=== PATIENT | male | born 1950 | race Caucasian/White ===

== ENCOUNTER 2019-08-10 15:31 | Inpatient (IN) | payer MEDICARE, BC, OTHER ==
[~2019-08-10] VITALS: Ht 175.3 cm; Wt 139.5 kg
[2019-08-10 15:33] VITALS: BP 129/69
[2019-08-10 16:35] LABS: BASO # 0.1 10*3/uL (0.0-0.1); BASO % 0.6 % (0.0-1.0); EOS # 0.2 10*3/uL (0.0-0.4); EOS % 1.8 % (1.0-4.0); HEMATOCRIT 50.2 % (42.0-52.0); HEMOGLOBIN 16.8 g/dl (14.0-18.0); LYMPH # 0.6 10*3/uL (1.3-4.4); LYMPH % 5.4 % (27.0-41.0); MEAN CORPUSCULAR HGB 31.5 pg (27.0-31.0); MEAN CORPUSCULAR HGB CONC 33.5 g/dl (33.0-37.0); MEAN PLATELET VOLUME 11.5 fl (9.6-12.3); MONO # 0.6 10*3/uL (0.1-1.0); MONO % 5.8 % (3.0-9.0); NEUT # 9.5 10*3/uL (2.3-7.9); NEUT % 85.9 % (47.0-73.0); PLATELET COUNT AUTOMATED 169 10*3/uL (130-400); RED BLOOD COUNT 5.34 10*6/uL (4.50-5.90); RED CELL DISTRI WIDTH 13.4 % (0-14.5)
[2019-08-10 16:50] LABS: BILIRUBIN NEGATIVE (NEGATIVE); CLARITY CLEAR (CLEAR); COLOR YELLOW (YELLOW); GLUCOSE 3+ (NEGATIVE)
[2019-08-10 16:51] LABS: BLOOD 1+ (NEGATIVE); KETONE 2+ (NEGATIVE); LEUKO ESTERASE NEGATIVE (NEGATIVE); NITRITE NEGATIVE (NEGATIVE); SPECIFIC GRAVITY 1.005 (1.005-1.030); UROBILINOGEN 0.2 E.U./dl (0.2-1.0)
[2019-08-10 16:56] LABS: BACTERIA 1+; EPITHELIAL CELLS 0-2; RBC 0-2 rbc/hpf (0-2); WBC 0-2 wbc/hpf (0-5)
[2019-08-10 16:56] LABS: ALBUMIN 3.2 gm/dl (3.1-4.5); ALKALINE PHOSPHATASE 79 U/L (45-117); BUN 15 mg/dl (7-24); CHLORIDE 108 mmol/L (98-107); CREATININE 1.23 mg/dL (0.70-1.30); POTASSIUM 4.7 mmol/L (3.5-5.1); SGOT/AST 12 IU/L (3-35); SGPT/ALT 24 U/L (12-78); SODIUM 141 mmol/L (136-145); TOTAL PROTEIN 6.7 gm/dL (6.4-8.2)
[2019-08-10 18:13] VITALS: BP 127/89
--- NOTE | 2019-08-10 19:10 | NUR ---
NURSE TO NURSE REPORT GIVEN TO THIS RN.ADVISED ATTEMPTS MADE BY MD WELLER AND MD LAFLEUR TO OBTAIN SPINAL FLUID VIA LUMBAR PUNCTURE.ATTEMPTS UNSUCCESSFUL AT THIS TIME.ANESTHESIOLOGY CONTACTED.
--- NOTE | 2019-08-10 19:38 | NUR ---
ANESTHESIOLOGITS,VLAD MARY, IN ROOM TO SPEAK WITH PT AND FAMILY REGARDING LUMBAR PUNCTURE PROCEDURE FOR OBTAINMENT OF SPINAL FLUID.
--- NOTE | 2019-08-10 20:17 | NUR ---
THIS RN AT BEDSIDE WITH ANESTHESIOLOGY, VLAD MARY.LUMBAR PUNCTURE PERFORMED BY TYAR FOR SPINAL FLUID.SPINAL FLUID OBTAINED,LABELED AND TAKEN TO LAB.PT TOLERATED WELL.PT LYING IN SUPINE POSITION PER ANESTHESIA FOR 1 HOUR.PT PROVIDED CAFFEINE DRINK OF DIET COKE PER ANESTHESIOLOGIST.
[2019-08-10 20:41] LABS: CSF RBC < 1000 /uL; CSF WBC 8 /uL
--- NOTE | 2019-08-10 20:41 | NUR ---
INFUSION OF ROCEPHIN INITIATED.
[2019-08-10 20:42] VITALS: BP 130/76
[2019-08-10 20:42] LABS: CSF GLUCOSE 124 mg/dL (40-70); CSF TOTAL PROTEIN 88.5 mg/dL (15-45)
--- NOTE | 2019-08-10 20:53 | NUR ---
PT FAMILY AT BEDSIDE.PT TOLERATING DRINKING DIET COKE.
--- NOTE | 2019-08-10 21:06 | NUR ---
INFUSION OF NS INITIATED.
[2019-08-10 21:17] VITALS: BP 129/78
[2019-08-10 21:29] LABS: CSF LYMPHOCYTES 97 % (40-80); CSF MONOCYTES 3 % (15-45)
[2019-08-10 21:33] LABS: CLARITY CLEAR; COLOR COLORLESS
--- NOTE | 2019-08-10 22:28 | NUR ---
PT RETURNED TO ROOM FROM CT.FLUIDS COMPLETED.
--- NOTE | 2019-08-10 22:33 | NUR ---
ADVISED BY RADIOLOGY PT NEEDS TO HOLD METFORMIN FOR 48HR.
[2019-08-10 23:38] VITALS: BP 128/73
--- NOTE | 2019-08-10 23:39 | NUR ---
PT AND FAMILY UPDATED ON CURRENT PLAN OF CARE.ADVISED MD LAFLEUR WILL BE IN TO REVIEW TEST RESULTS SHORTLY.
[2019-08-11] VITALS (7 sets, daily range): BP systolic 102–140; BP diastolic 59–79
--- NOTE | 2019-08-11 00:24 | NUR ---
DR LAFLEUR AT BEDSIDE.
--- NOTE | 2019-08-11 01:35 | NUR ---
PT FAMILY LEAVE A PASSWORD OF "1965"
--- NOTE | 2019-08-11 01:53 | NUR ---
PT DENIES ANY WOUNDS.
--- NOTE | 2019-08-11 02:04 | NUR ---
A 69, admitted to , under the services of MARIN Garzon DO with a diagnosis of FALL. Chief complaint is FEVER/FALL. Patient arrived via from ER. Monitor applied. Initial assessment completed. Vital signs taken and recorded. MARIN GARZON DO notified of admission to the unit. Orders received. See assessment for past medical history, medications and allergies. Patient orientED to unit. Clothing/patient valuable form completed. EDWARD KAT
--- NOTE | 2019-08-11 02:14 | NUR ---
PT FAMILY CONTACTED AND UPDATE ON PT ADMISSION AND ROOM ASSIGNMENT.
--- NOTE | 2019-08-11 02:29 | NUR ---
PRESENT ON FLOOR, INFORMED THAT PATIENT DOES NOT KNOW HIS MEDS, WILL HAVE TO WAIT FOR TO COME IN. STATED OK.
--- NOTE | 2019-08-11 02:43 | NUR ---
ID ANSWERING SERVICES CALLED IN REGARD TO NEW CONSULT. MESSAGE TO BE SENT TO FELIX MARTINEZ.
--- NOTE | 2019-08-11 04:00 | NUR ---
IV started VANNESA with #20 protective cath after 0 attempts. Site prepped with Chloroprep. Sterile dressing applied. Patient tolerated procedure well. IV infusing at BOLUS EDWARD KAT
[2019-08-11 05:56] LABS: BASO % 0.5 % (0.0-1.0); EOS # 0.1 10*3/uL (0.0-0.4); EOS % 2.4 % (1.0-4.0); HEMATOCRIT 47.3 % (42.0-52.0); HEMOGLOBIN 15.6 g/dl (14.0-18.0); LYMPH # 0.8 10*3/uL (1.3-4.4); LYMPH % 12.7 % (27.0-41.0); MEAN CELL VOLUME 93.7 fl (80.0-94.0); MEAN CORPUSCULAR HGB 30.9 pg (27.0-31.0); MEAN PLATELET VOLUME 11.5 fl (9.6-12.3); MONO # 0.5 10*3/uL (0.1-1.0); MONO % 8.3 % (3.0-9.0); NEUT # 4.5 10*3/uL (2.3-7.9); NEUT % 75.6 % (47.0-73.0); PLATELET COUNT AUTOMATED 136 10*3/uL (130-400); RED BLOOD COUNT 5.05 10*6/uL (4.50-5.90); RED CELL DISTRI WIDTH 13.5 % (0-14.5); WHITE BLOOD COUNT 5.9 10*3/uL (4.8-10.8)
[2019-08-11 06:13] LABS: BUN 12 mg/dl (7-24); CHLORIDE 110 mmol/L (98-107); PHOSPHOROUS 3.1 mg/dL (2.5-4.9); SODIUM 142 mmol/L (136-145)
[2019-08-11 06:19] LABS: POTASSIUM 3.7 mmol/L (3.5-5.1); THYROID STIM HORMONE (HS) 0.724 uIU/ml (0.358-4.75)
[2019-08-11 07:22] LABS: VITAMIN D, 25-HYDROXY 48.7 ng/mL (30-100)
--- NOTE | 2019-08-11 09:36 | NUR ---
CALLED DR LEACH PER PT REQUEST, PT DOES NOT WANT THE LOVENOX SHOT, HE WANTS SOMETHING PO. DR LEACH STATES THAT THERE IS NOTHING PO THAT HE WILL NEED THE IM, BUT TO JUST DOCUMENT IF HE REFUSES.
--- NOTE | 2019-08-11 09:38 | NUR ---
IN PT ROOM AT THIS TIME TO LET HIM KNOW THERE IS NO PO FORM OF LOVENOX, SO HE STATES HE WANTS TO REFUSE THE MEDICATION
--- NOTE | 2019-08-11 09:56 | NUR ---
DR VU ON THE FLOOR AND WANTS TO REACH OUT TO ID FOR THE CONSULT. CALLED THE ANSWERING SERVICE AND SHE STATES THAT DR WASHINGTON IS DISTRIBUTION SUPERINTENDENT AND WAS NOTIFIED OF THE CONSULT, THEY WILL PUT A REPEAT IN NOW. IF I DO NOT HEAR FROM DR WASHINGTON IN THE NEXT HALF HOUR TO CALL BACK AND THEY WILL TRY THE NEXT STEP IF NEEDED
--- NOTE | 2019-08-11 10:39 | NUR ---
DR WASHINGTON NOTIFIED OF NEW CONSULT, STATES SHE WILL BE IN TO SEE THE PATIENT. DR CHAMORRO AND DR VU ON THE FLOOR AND NOTIFIED OF THIS
--- NOTE | 2019-08-11 11:10 | NUR ---
FAMILY MEMBERS IN THE ROOM NOW AND SHE STATES THAT THEY WILL RUN HOME TO GET THE HOME MEDICATION LIST AND BRING IT IN SO I CAN UPDATED RECORDS
[2019-08-11] MEDS ORDERED: LITHIUM CARBON600 MG PO (11:52)
[2019-08-11] MEDS ORDERED: JARDIANCE25 MG PO (11:53)
[2019-08-11] MEDS ORDERED: OSTERA TABLET1 EACH PO (11:53)
[2019-08-11] MEDS ORDERED: GLUCOPHAGE1000 MG PO (11:54)
[2019-08-11] MEDS ORDERED: NEURONTIN300 MG PO (11:54)
[2019-08-11] MEDS ORDERED: DOCUSATE SOD100 MG PO (11:55)
[2019-08-11] MEDS ORDERED: GLIPIZIDE5 MG PO (11:56)
[2019-08-11] MEDS ORDERED: BENZTROPINE MESY2 MG PO (11:56)
[2019-08-11] MEDS ORDERED: TAMSULOSIN HCL0.4 MG PO (11:59)
[2019-08-11] MEDS ORDERED: ABILIFY5 MG PO (11:59)
[2019-08-11] MEDS ORDERED: PROPRANOLOL ER80 MG PO (12:00)
[2019-08-11] MEDS ORDERED: FUROSEMIDE40 MG PO (12:01)
[2019-08-11] MEDS ORDERED: DIVALPROEX SOD500 MG PO (12:02)
[2019-08-11] MEDS ORDERED: MEDI-LYTE TABL1 EACH PO (12:02)
--- NOTE | 2019-08-11 12:15 | NUR ---
DR CHAMORRO NOTIFIED OF UPDATED MED LIST
--- NOTE | 2019-08-11 12:15 | NUR ---
DR CHAMORRO ON THE FLOOR AND NOTIFIED OF UPDATED MEDICATION LIST
--- NOTE | 2019-08-11 12:34 | NUR ---
PT IS CONFUSED AND AGITATED AND WANTS TO KNOW WHEN HE CAN LEAVE. CALLED HIS PER REQUEST AND HE TALKED TO HER ON THE PHONE. I EXPLAINED WHO DR HERNANDEZ WAS AND WHAT THE PLAN WAS WITH HIS CARE, PT STATES THAT HE IS JUST VERY CONFUSED AND NOT SURE IF HE IS COMING OR GOING HERE. PT STATES SHE WILL BE IN TODAY TO BRING IN HIS CHECKS SO THAT HE CAN PAY BILLS. CALL LIGHT WITHIN REACH, WILL CONTINUE TO MONITOR
[2019-08-12] VITALS: BP 130/62
--- NOTE | 2019-08-12 07:31 | NUR ---
Occupational Therapy: Screen and referral received for occupational therapy evaluation. Thank you, Anamaria Carreno OTR/L
[2019-08-12 07:32] VITALS: BP 118/68
--- NOTE | 2019-08-12 07:42 | NUR ---
PHYSICAL THERAPY Screen and PT eval received will follow thank you Ally Nettles PT
--- NOTE | 2019-08-12 08:15 | NUR ---
Occupational therapy orders received and OT evaluation completed in full on floor four. Patient precautions include fall risk, ww use, IV, and catheter. Per OT eval, OT recommends SNF due to patient's functional status and history of falls. Patient and family refusing SNF, and would like to return home to [place] later this week with HH. Patient and family educated on benefits of SNF and continued rehab [place] [address]. Thank you for the referral. Sully Salinas OTR/L
--- NOTE | 2019-08-12 08:27 | NUR ---
PT RESTING IN BED, JUST FINISHED EATING BREAKFAST. PT PLEASANT AND COOPERATIVE. NO COMPLAINTS VOICED AT THIS TIME. JALEEL PEREZ [facility]
--- NOTE | 2019-08-12 09:00 | NUR ---
Licensed Nurse Practitioner in to talk to patient. Patient states lives at home with . There are no steps in the home. Physician: out of state Pharmacy: out of state Home health services: none Patient's level of ADLs: MODERATE ASSIST Patient has working utilities: all working DME: walker Follow-up physician's appointment after d/c: will be made by hospitalist nurse director upon discharge Does patient want to access PORTAL?: no Discharge plan discussed with patient, and sister in law present, states she and patient are from out of state and will be returning when patient is medically stable, she stated patient was discharged recently from home physical therapy but when they return home she is contacting their doctor to reorder home health and physical therapy, stated they didn't have any other needs at this time, . KAUSHIK FRITZ
[2019-08-12 09:06] LABS: BASO % 0.6 % (0.0-1.0); EOS # 0.1 10*3/uL (0.0-0.4); EOS % 1.8 % (1.0-4.0); HEMATOCRIT 43.8 % (42.0-52.0); HEMOGLOBIN 14.3 g/dl (14.0-18.0); LYMPH # 1.7 10*3/uL (1.3-4.4); LYMPH % 26.6 % (27.0-41.0); MEAN CELL VOLUME 93.6 fl (80.0-94.0); MEAN CORPUSCULAR HGB 30.6 pg (27.0-31.0); MEAN CORPUSCULAR HGB CONC 32.6 g/dl (33.0-37.0); MEAN PLATELET VOLUME 11.6 fl (9.6-12.3); MONO # 0.7 10*3/uL (0.1-1.0); MONO % 11.8 % (3.0-9.0); NEUT # 3.7 10*3/uL (2.3-7.9); NEUT % 58.6 % (47.0-73.0); PLATELET COUNT AUTOMATED 136 10*3/uL (130-400); RED BLOOD COUNT 4.68 10*6/uL (4.50-5.90); RED CELL DISTRI WIDTH 13.2 % (0-14.5); WHITE BLOOD COUNT 6.3 10*3/uL (4.8-10.8)
[2019-08-12 09:17] LABS: ALBUMIN 2.7 gm/dl (3.1-4.5); ALKALINE PHOSPHATASE 60 U/L (45-117); BUN 9 mg/dl (7-24); CHLORIDE 112 mmol/L (98-107); CREATININE 0.88 mg/dL (0.70-1.30); POTASSIUM 3.7 mmol/L (3.5-5.1); SGOT/AST 15 IU/L (3-35); SGPT/ALT 23 U/L (12-78); SODIUM 143 mmol/L (136-145)
--- NOTE | 2019-08-12 10:51 | NUR ---
PT UP IN CHAIR VISITING WITH FAMILY. NO COMPLAINTS VOICED AT THIS TIME. JALEEL PEREZ [facility]
[2019-08-12 12:00] VITALS: BP 116/68
--- NOTE | 2019-08-12 12:57 | NUR ---
PT JUST FINSIHED EATING LUNCH SITTING IN CHAIR VISITING WITH HIS . NO COMPLINTS AT THIS TIME. JALEEL PEREZ [facility]
--- NOTE | 2019-08-12 12:58 | NUR ---
OT NOTE Pt was seen this P.M. 1:1 for 15 minute OT session. Upon arrival pt was sitting upright in the recliner. Pt identified by name and and had no complaints at this time. Pt completed sit to stand from chair level with Eli and use of w/w for UE support. Pt was educated on proper hand placement for increased I and improved technique. Challenged pt's static standing tolerance needed for increased I in self care tasks and functional transfers, pt was able to tolerate aprox 4 minutes before sitting due to fatigue. Functional mobility was then completed to the bathroom and back with CGA and use of w/w. Pt was left sitting upright in the recliner with call light in hand, body alarm activated for safety, and at bedside. COntinue with rec D/C plan to SNF. АЛЕКСАНДР Patino
--- NOTE | 2019-08-12 13:46 | NUR ---
PT RESTING, VISITING WITH FAMILY. PLEASANT AND COOPERATIVE. JALEEL PEREZ [facility]
--- NOTE | 2019-08-12 14:15 | NUR ---
PHYSICAL THERAPY Ben completed moderate level of complexity [address] recomend SNF at discharge spoke with pt and they would like to go home or are considering a hotel so pt would not have to do steps. Discussed safety concerns at length w regards to function and cogntive status, they will think about it. Full report to follow PT to work on tranfers,amb, strengthening stair training as/if appropriate Ally Nettles PT
--- NOTE | 2019-08-12 14:20 | NUR ---
Pt up and voided large amount of urine on the floor.
--- NOTE | 2019-08-12 15:13 | NUR ---
Dr. Maxwell in and spoke with pt and . States that she is going to dc vanco and rocephin and will start acyclovir for pt. States she is waiting on HCV PCR results from [facility]. She notified family when results are back then she will know how to proceed. Family agreeable. States if that is positive pt will need a picc line and sent home on iv antibiotics. So awaiting results for further plan to become clear. Notified Dr. Garland.
[2019-08-12 16:00] VITALS: BP 139/67
[2019-08-12 20:00] VITALS: BP 130/66
--- NOTE | 2019-08-12 20:04 | NUR ---
PATIENT IS AAOX3 WITH EASY AND REGULAR RESPERS ON ROOM AIR. ASSESSMENT IS COMPLETE WITH NO C/O OR S/S OF DISTRESS NOTED AT THIS TIME. BODYALARM AND CALL LIGHT IN PLACE. WILL CONTINUE TO MONITOR, SEE SHIFT ASSESSMENT.
[2019-08-13] VITALS: BP 122/63
--- NOTE | 2019-08-13 03:34 | NUR ---
CHART CHECK COMPLETE.
[2019-08-13 06:12] LABS: BASO % 0.7 % (0.0-1.0); EOS # 0.2 10*3/uL (0.0-0.4); HEMATOCRIT 44.2 % (42.0-52.0); HEMOGLOBIN 14.5 g/dl (14.0-18.0); LYMPH # 1.6 10*3/uL (1.3-4.4); LYMPH % 26.7 % (27.0-41.0); MEAN CELL VOLUME 91.9 fl (80.0-94.0); MEAN CORPUSCULAR HGB 30.1 pg (27.0-31.0); MEAN CORPUSCULAR HGB CONC 32.8 g/dl (33.0-37.0); MEAN PLATELET VOLUME 11.3 fl (9.6-12.3); MONO # 0.6 10*3/uL (0.1-1.0); MONO % 10.6 % (3.0-9.0); NEUT # 3.4 10*3/uL (2.3-7.9); NEUT % 57.7 % (47.0-73.0); PLATELET COUNT AUTOMATED 138 10*3/uL (130-400); RED BLOOD COUNT 4.81 10*6/uL (4.50-5.90); RED CELL DISTRI WIDTH 13.1 % (0-14.5)
[2019-08-13 06:36] LABS: ALBUMIN 2.5 gm/dl (3.1-4.5); ALKALINE PHOSPHATASE 55 U/L (45-117); BUN 9 mg/dl (7-24); CHLORIDE 110 mmol/L (98-107); CREATININE 0.71 mg/dL (0.70-1.30); PHOSPHOROUS 2.9 mg/dL (2.5-4.9); SGOT/AST 18 IU/L (3-35); SGPT/ALT 28 U/L (12-78); SODIUM 144 mmol/L (136-145); TOTAL PROTEIN 5.8 gm/dL (6.4-8.2)
[2019-08-13 06:40] LABS: POTASSIUM 3.6 mmol/L (3.5-5.1)
--- NOTE | 2019-08-13 07:34 | NUR ---
PHYSICAL THERAPY Screen and eval received pt evaluated and is on caseload thank you Ally Nettles PT
[2019-08-13 08:00] VITALS: BP 136/72
--- NOTE | 2019-08-13 09:00 | NUR ---
case management visits with patient, he states he will return home with his when medically stable, case management will follow
--- NOTE | 2019-08-13 09:10 | NUR ---
PHYSICAL THERAPY Patient seen this am 1;1 for therapy visit and was supine in bed following breakfast upon therapist arrival. Patient identified by name / and reports mild B LE joint aches. Patients arrived and was present for entire therapy session as patient transfers supine to sit EOB with MOD A x 1. Patient needed a minute or so to collect himself, then completed sit to stand CGA, ambulating with use of wh walker, CGA, 15'x 1 to bathroom. Patient demonstrated, very slow deep, decreased stride and bouts of unsteady gait pattern, especially during 90/180 turns. Patient ambulated additional 25'x 1 around bed to bedside chair demonstrating increased fatigue. Patient remained in chair with call light, tray table, cell phone and body alarm. Will continue per POC as tolerated, total treatment time 16 minutes. Simon Spann, PROJECT PLANNER
--- NOTE | 2019-08-13 09:10 | NUR ---
OT NOTE Pt was seen this A.M. 1:1 for 20 minute OT session. Upon arrival pt was supine in bed. Pt identified by name and and had no complaints at this time. Pt transferred supine to sit EOB with modA for assist with UB. While sitting EOB pt donned B socks with CGA for safety. Sit to stand completed from bed level with CGA and use of w/w for UE support. Functional mobility was then completed to the bathroom with CGA and use of w/w. There he transferred on/off standard commode with CGA. Clothing management completed with Eli and toilet hygiene completed with distant supervision while seated. Pt then stood sink side while washing his hands with CGA for safety. Functional mobility was then completed back to the recliner with CGA and use of w/w for UE support. There he was left with call light in hand, tray table in place, and body alarm activated for safety. Continue with rec D/C plan to SNF. CHIDI Patino/Shell
[2019-08-13 12:00] VITALS: BP 139/62
[2019-08-13 16:00] VITALS: BP 139/84
[2019-08-13 20:00] VITALS: BP 139/72
--- NOTE | 2019-08-13 21:20 | NUR ---
PATIENT IS AAOX3 RESTING IN BED WITH EASY AND REGULAR RESPERS ON ROOM AIR. ASSESSMENT IS COMPLETE WITH NO S/S OF DISTRESS NOTED AT THIS TIME. PATIENT C/O GENERALIZED PAIN. PRN NORCO GIVEN WITH 2200 MEDICAIONS. BEDSIDE GLUCOSE 176. BED IS LOW, LOCKED, AND CALL LIGHT IS WITHIN REACH. WILL CONTINUE TO MONITOR, SEE SHIFT ASSESSMENT.
[2019-08-14] VITALS: BP 155/86
[2019-08-14 07:27] LABS: SGPT/ALT 33 U/L (12-78)
[2019-08-14 08:00] VITALS: BP 148/70
--- NOTE | 2019-08-14 09:00 | NUR ---
case management visits with patient, and sister in law present, he will return home with when medically stable, case management will follow
--- NOTE | 2019-08-14 11:15 | NUR ---
PHYSICAL THERAPY Patient seen this am 1:1 for therapy visit and was sitting up in bedside chair upon therapist arrival. Patient identified by name / and reported no new c/o's at this time. Patients was also present this session as patient transfers sit to stand from low chair surface, MIN A and ambulates with use of wh walker, CGA, 40'x 1, deemonstrating slow deep, decreased stride and cautious gait pattern. Patient needed v/c to improve walker safety / navigation during 180 turn around and returned to bedside chair with mild fatigue. Patient needed brief rest then was able to complete seated B LE therex, all planes, x 15 reps each to increase LE strength. Patient remained in chair with call light, tray table, cell phone and body alarm for safety as lunch arrived. Will continue per POC as tolerated, total treatment time 18 minutes. Simon Spann, ELECTRICAL SIGN WIRER
[2019-08-14 12:00] VITALS: BP 137/58
[2019-08-14 12:08] LABS: HSV-2 DNA Negative (Negative)
[2019-08-14 16:00] VITALS: BP 136/79
[2019-08-14 16:11] LABS: CSF CRYPTOCOCCUS AG Negative (Negative)
[2019-08-14 20:00] VITALS: BP 141/78
[2019-08-15] VITALS: BP 154/80
--- NOTE | 2019-08-15 00:35 | NUR ---
PATIENT'S IV NOT FLUSHING. CATHETER PULLED LONG-TERM OUT OF SITE. DISCONTINUED AND STARTED NEW IV IN RIGHT ARM. FLUSHES WELL. SIZE 22. HEP-LOCKED. IV ABX CURRENTLY RUNNING.
--- NOTE | 2019-08-15 01:05 | NUR ---
Patient resting quietly with no c/o discomfort. Respirations easy and regular. Vital signs stable. No overt distress. MASHA VELARDE
[2019-08-15 06:08] LABS: HEPATITIS B SURFACE AB 006395 Non Reactive (.); HEPATITIS B SURFACE AG Negative (Negative); HEPATITIS C AB <0.1 (0.0-0.9)
[2019-08-15 08:00] VITALS: BP 153/83
[2019-08-15 08:12] VITALS: BP 132/60
--- NOTE | 2019-08-15 08:12 | NUR ---
TOOK OVER CARE OF PT. PT RESTING IN BED. RESPIRATIONS EASY AND UNLABORED ON ROOM AIR. PT ALERT AND ORIENTED AND ANSWERING ALL QUESTIONS APPROPRIATELY. IV ATB INFUSING. IV SITE PATIENT, DRESSING C/D/I. NO S/S OF DISTRESS. CALL LIGHT IN REACH.
--- NOTE | 2019-08-15 09:00 | NUR ---
case management visits with patient, family present, patient will return home with and sister in law and then return to [place] with his , denies any home needs at this time
--- NOTE | 2019-08-15 09:20 | NUR ---
PHYSICAL THERAPY Patient seen this am 1:1 for therapy visit and was supine in bed upon therapist arrival. Patient identified by name / and reports no new c/o's as his was present for entire therapy session. Patient transfers supine to sit EOB with CGA, completing sit to stand transfer, CGA x 1. Patient ambulates with use of wh walker, CGA, 20'x 1 to bathroom, then additional 30'x 1, demonstrating no LOB and only mild fatigue. Patient also with continuous IV treatment and returned to bedside chair. Patient remained with call light, tray table, cell phone and body alarm for safety. Will continue per POC as tolerated, total treatment time 16 minutes. Simon Spann, AUDIT REVIEWER
--- NOTE | 2019-08-15 09:45 | NUR ---
OT NOTE Pt was seen this A.M. 1:1 for 20 minute OT session. Upon arrival pt was supine in bed. Pt identified by name and and had no complaints at this time. Pt transferred supine to sit EOB with Eli for assist with UB. Sit to stand completed from bed level with CGA and use of w/w for UE support. Functional mobility was then completed to the bathroom with CGA and use of w/w. There he transferred on/off standard commode with CGA and clothing management completed with CGA for safety. Pt then stood sink side while washing his hands with CGA. Functional mobility was then completed back to the recliner where he was left sitting upright with call light in hand, tray table in place, and body alarm activated for safety. Continue with POC as able. CHIDI Patino/Shell
--- NOTE | 2019-08-15 12:17 | NUR ---
Discharge instructions reviewed with patient/family. Patient receptive and verbalizes understanding. Follow-up care arranged. Written instructions given to patient/family. KENAN HARKINS
--- NOTE | 2019-08-16 07:38 | NUR ---
PHYSICAL THERAPY CO-SIGN I approve of the Physical Therapy notes written above. Ally Nettles PT
--- NOTE | 2019-08-16 08:20 | NUR ---
OCCUPATIONAL THERAPY CO-SIGN I approve of the Occupational Therapy notes written above. NIDIA BAPTISTE OTR/Shell
[2019-08-16 10:08] LABS: ADENOVIRUS Negative (Negative); INFLUENZA A Negative (Negative); INFLUENZA B Negative (Negative); METAPNEUMOVIRUS Negative (Negative); PARAINFLUENZA 1 Negative (Negative); PARAINFLUENZA 2 Negative (Negative); PARAINFLUENZA 3 Negative (Negative); RHINOVIRUS Positive (Negative); RSV A Negative (Negative); RSV B Negative (Negative)
== END 2019-08-15 12:17 | disposition home or self-care (01) | DRG 871 ==
LOC: ED 15:31 → 4E 08-11 01:43
PROVIDERS: Emergency Medicine; Emergency Medicine Emergency Medical Services; Family Medicine; Student in an Organized Health Care Education/Training Program; ADMIT Internal Medicine
PROC: 009U3ZX Drainage of Spinal Canal, Percutaneous Approach, Diagnostic (ICD-10-PCS; principal; 2019-08-10)
DX: A41.9 Sepsis, unspecified organism (principal); G93.41 Metabolic encephalopathy; G03.0 Nonpyogenic meningitis; J96.01 Acute respiratory failure with hypoxia; E87.2 Acidosis; Z68.42 Body mass index [BMI] 45.0-49.9, adult; E11.65 Type 2 diabetes mellitus with hyperglycemia; E87.8 Other disorders of electrolyte and fluid balance, not elsewhere classified; K57.90 Diverticulosis of intestine, part unspecified, without perforation or abscess without bleeding; N20.0 Calculus of kidney; E66.9 Obesity, unspecified